=== PATIENT | female | born 1985 | race American Indian/Alaskan Native ===

== ENCOUNTER 2017-04-02 16:36 | Emergency (ER) | payer MEDICAID, OTHER ==
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
[2017-04-02] MEDS ORDERED: NORCO 5/325 PO ONE (19:35)
[2017-04-02 20:10] VITALS: BP 114/74
== END 2017-04-02 19:35 | disposition home or self-care (01) ==
LOC: ED 16:36
DX: S16.1XXA Strain of muscle, fascia and tendon at neck level, initial encounter (principal); S46.912A Strain of unspecified muscle, fascia and tendon at shoulder and upper arm level, left arm, initial encounter; V49.49XA Driver injured in collision with other motor vehicles in traffic accident, initial encounter; Y93.89 Activity, other specified; Y92.89 Other specified places as the place of occurrence of the external cause; Y99.8 Other external cause status
CPT/HCPCS: 72040

== ENCOUNTER 2018-09-09 21:47 | Emergency (ER) | payer MEDICAID ==
[2018-09-09] MEDS ORDERED: LIDOCAINE VISCOUS 2% PO ONE (22:10)
[2018-09-09] MEDS ORDERED: ALUM-MAG HYDROX-SIMETH 200-200-20MG/5ML PO ONE (22:10)
--- NOTE | 2018-09-09 22:14 | Emergency Department Report ---
ED Chest Pain HPI - General Chief Complaint: Chest Pain Stated Complaint: CHEST PAIN Time Seen by Provider: 09/09/18 21:51 Source: patient, EMS Mode of arrival: Ambulatory Limitations: No Limitations - History of Present Illness Initial Comments: Patient is 33 years old female with no significant past medical history. Patient brought to the emergency room via EMS for evaluation of chest pain. Patient stated that pain started after lunch today. Patient described pain as substernal, tightness. Patient stated that she never had any similar symptoms before. Patient denied any shortness of breath, fever, cough or chills. Patient also denied any nausea or vomiting or abdominal pain. MD Complaint: chest pain -: This afternoon Onset: during rest Pain Location: substernal Pain Radiation: none Severity: moderate Severity scale (0 -10): 5 Quality: tightness Consistency: intermittent Improves With: nothing Worsens With: nothing - Related Data Previous Rx's Medication Instructions Recorded Last Taken Type HYDROcodone/ACETAMINOPHEN 1 tab PO TID PRN #15 tablet 04/02/17 Unknown Rx [Hydrocodon-Acetaminophen 5-325] Allergies Allergy/AdvReac Type Severity Reaction Status Date / Time No Known Allergies Allergy Unverified 04/02/17 16:42 Heart Score - HEART Score History: Slightly suspicious EKG: Normal Age: < 45 Risk factors: No known risk factors Troponin: < normal limit HEART Score: 0 - Critical Actions Critical Actions: 0-3 pts:0.9-1.7%risk of adverse cardiac event.Candidate for discharge ED Review of Systems ROS: Stated complaint: CHEST PAIN Other details as noted in HPI Comment: All other systems reviewed and negative Constitutional: denies: chills, fever Respiratory: denies: cough, shortness of breath Cardiovascular: chest pain Gastrointestinal: denies: abdominal pain, nausea, vomiting, diarrhea, constipation, hematemesis, melena, hematochezia Musculoskeletal: denies: back pain Neurological: denies: headache, weakness, numbness, paresthesias, confusion, abnormal gait ED Past Medical Hx - Past Medical History Previous Medical History?: No - Surgical History Past Surgical History?: No - Social History Smoking Status: Unknown if ever smoked Substance Use Type: None - Medications Home Medications: Home Medications Medication Instructions Recorded Confirmed Last Taken Type HYDROcodone/ACETAMINOPHEN 1 tab PO TID PRN #15 tablet 04/02/17 Unknown Rx [Hydrocodon-Acetaminophen 5-325] ED Physical Exam - General Limitations: No Limitations General appearance: alert, in no apparent distress - Head Head exam: Present: atraumatic, normocephalic, normal inspection - Eye Eye exam: Present: normal appearance - ENT ENT exam: Present: normal exam, normal orophraynx, mucous membranes moist - Neck Neck exam: Present: normal inspection, full ROM. Absent: tenderness, meningismus, lymphadenopathy, thyromegaly - Respiratory Respiratory exam: Present: normal lung sounds bilaterally - Cardiovascular Cardiovascular Exam: Present: regular rate, normal rhythm, normal heart sounds - GI/Abdominal GI/Abdominal exam: Present: soft, normal bowel sounds. Absent: distended, tenderness, guarding, rebound, rigid, organomegaly, mass, bruit, pulsatile mass - Extremities Exam Extremities exam: Present: normal inspection, full ROM, normal capillary refill - Back Exam Back exam: Present: normal inspection, full ROM. Absent: CVA tenderness (R), CVA tenderness (L), muscle spasm, paraspinal tenderness, vertebral tenderness - Neurological Exam Neurological exam: Present: alert, oriented X3, CN II-XII intact, normal gait, reflexes normal - Psychiatric Psychiatric exam: Present: normal mood - Skin Skin exam: Present: warm, intact, normal color ED Course Vital Signs 09/09/18 09/09/18 09/09/18 21:58 22:01 22:15 Pulse Rate 65 66 65 Respiratory 16 13 17 Rate Blood Pressure 118/78 113/73 O2 Sat by Pulse 100 98 Oximetry 09/09/18 09/09/18 09/09/18 22:31 22:35 22:45 Pulse Rate 64 73 63 Respiratory 9 L 12 Rate Blood Pressure 113/73 113/73 O2 Sat by Pulse 100 99 Oximetry 09/09/18 09/09/18 09/10/18 23:01 23:15 00:41 Pulse Rate 63 73 63 Respiratory 12 11 L 11 L Rate Blood Pressure 113/73 113/73 107/74 O2 Sat by Pulse 100 100 100 Oximetry 09/10/18 09/10/18 09/10/18 00:45 01:00 01:15 Pulse Rate 70 58 L 61 Respiratory 13 13 14 Rate Blood Pressure 107/74 119/79 119/79 O2 Sat by Pulse 100 98 100 Oximetry ED Medical Decision Making - Lab Data Result diagrams: 09/09/18 22:22 09/09/18 22:23 - EKG Data -: EKG Interpreted by Ia EKG shows normal: sinus rhythm Rate: normal - EKG Data Interpretation: no acute changes - Radiology Data Radiology results: report reviewed CTA chest is negative for PE or any other acute pathology. - Medical Decision Making Patient is 33 years old female with no significant past medical history. Patient brought to the emergency room via EMS for evaluation of chest pain. Patient stated that pain started after lunch today. Patient described pain as substernal, tightness. Patient stated that she never had any similar symptoms before. Patient denied any shortness of breath, fever, cough or chills. Patient also denied any nausea or vomiting or abdominal pain. EKG with no ST elevation or depression. Chest x-ray is negative for acute finding. Labs reviewed and is negative including a negative troponin. D-dimer slightly elevated patient had a CTA chest which is negative for pulmonary emboli sm. I believe the patient's symptoms is most likely related to GERD since patient's symptoms improved with GI cocktail. Patient advised to follow-up with primary care physician in the next 2-3 days and to return to the ER if symptoms have not improved. Critical care attestation.: If time is entered above; I have spent that time in minutes in the direct care of this critically ill patient, excluding procedure time. ED Disposition Clinical Impression: Chest pain, GERD (gastroesophageal reflux disease) Disposition: -01 TO HOME OR SELFCARE Is pt being admited?: No Condition: Stable Instructions: Chest Pain (ED), Gastroesophageal Reflux Disease (ED) Referrals: ASUD BANSAL MD [Primary Care Provider] - 3-5 Days
[2018-09-09 22:46] LABS: Basophils % (Auto) 0.5 % (0.0-1.8); Eosinophils % (Auto) 0.8 % (0.0-4.3); Hematocrit 29.9 % (30.3-42.9); Hemoglobin 10.4 gm/dl (10.1-14.3); Lymphocytes # (Auto) 2.3 K/mm3 (1.2-5.4); Lymphocytes % (Auto) 40.1 % (13.4-35.0); Mean Corpuscular HGB Conc 35 % (30-34); Mean Corpuscular Volume 93 fl (79-97); Monocytes # (Auto) 0.5 K/mm3 (0.0-0.8); Monocytes % (Auto) 8.5 % (0.0-7.3); Platelet Count 315 K/mm3 (140-440); Red Blood Count 3.21 M/mm3 (3.65-5.03); Red Cell Distribution Width 12.4 % (13.2-15.2)
[2018-09-09 23:02] LABS: BUN/Creatinine Ratio 13; Blood Urea Nitrogen 9 mg/dL (7-17); Calcium 9.3 mg/dL (8.4-10.2); Hemolysis Index 0
--- NOTE | 2018-09-10 00:26 | XRay Report ---
CHEST 1 VIEW INDICATION / CLINICAL INFORMATION: Chest Pain. COMPARISON: None available. FINDINGS: SUPPORT DEVICES: None. HEART / MEDIASTINUM: No significant abnormality. LUNGS / PLEURA: No significant pulmonary or pleural abnormality. No pneumothorax. ADDITIONAL FINDINGS: No significant additional findings. IMPRESSION: 1. No acute findings. Signer Name: Albert Stanley MD Signed: 09/10/2018 12:22 AM Workstation Name: [id number]
--- NOTE | 2018-09-10 02:18 | Cat Scan Report ---
. CT angiography of the chest with 2-D reconstructions INDICATION: Chest pain and shortness of breath Thin section axial images were obtained as well as 2-D reformatted MIP images in all 3 planes FINDINGS: There is no hilar or mediastinal adenopathy. No pleural or pericardial effusion. Lung windo ws show no nodules, masses or infiltrates. There is no thoracic aortic aneurysm or dissection present . Routine axial images as well as 2-D reconstructions through the pulmonary arteries show no evidence of emboli. IMPRESSION: Negative chest CTA Automated exposure control was utilized to diminish radiation dose. Signer Name: Albert Stanley MD Signed: 09/10/2018 2:13 AM Workstation Name: [id number]
[2018-09-10 02:35] VITALS: BP 119/79
== END 2018-09-10 03:00 | disposition home or self-care (01) ==
LOC: ED 21:47
DX: R07.89 Other chest pain (principal); K21.9 Gastro-esophageal reflux disease without esophagitis; R79.89 Other specified abnormal findings of blood chemistry; Z79.899 Other long term (current) drug therapy
CPT/HCPCS: 36415; 71045; 71275; 80048; 83690; 84484; 84703; 85025; 85379; 93005; 93010; 99284; Q9967

== ENCOUNTER 2020-11-02 06:34 | Emergency (ER) | payer MEDICAID ==
--- NOTE | 2020-11-02 08:45 | Emergency Department Report ---
ED General Adult HPI - General Stated complaint: DIZZINESS AND HOT FLASHES Time Seen by Provider: 11/02/20 08:35 Source: patient Mode of arrival: Ambulatory Limitations: No Limitations - History of Present Illness Initial comments: 35-year-old female with a past medical history of GERD presents to the ER today with complaints of not feeling well. Patient states that around 3 AM this morning she started "getting hot all over". And she states that when she would try to go back to sleep she felt like she was "passing out". She states that she would have to wake herself up. She reports intermittent dizziness, nausea and she did vomit once last night. She reports "a little" heaviness in her chest. Patient states that she has had a cold since last week Wednesday. She was having fever at the time but this has since resolved. She did have diarrhea but this has also improved. She denies any coughing, wheezing or shortness of breath. She denies any abdominal pain. She denies any UTI symptoms. She denies weakness, numbness, tingling, speech changes or vision changes. She denies any lower extremity swelling or calf pain. She states that she did not take a COVID-19 test since she has been sick with a cold. She also has not gotten any of the COVID-19 vaccines.She states that she does smoke marijuana off and on, she denies any other illicit drugs or alcohol abuse. She admits that she has been under increased stress lately, she has been staying in a hotel for the past month because her apartment is currently under renovation and she has also not see her daughter in 1 week. She denies any SI/HI or hallucinations. MD Complaint: Not feeling well - dizzy, feeling like she is about to pass out, nausea -: Gradual, This morning - Related Data Previous Rx's Medication Instructions Recorded Last Taken Type HYDROcodone/ACETAMINOPHEN 1 tab PO TID PRN #15 tablet 04/02/17 Unknown Rx [Hydrocodon-Acetaminophen 5-325] Docusate Sodium [Colace] 100 mg PO BID #30 capsule 11/02/20 Unknown Rx Famotidine [Pepcid] 20 mg PO BID #60 tablet 11/02/20 Unknown Rx Pantoprazole [Protonix] 40 mg PO QDAY #30 tablet 11/02/20 Unknown Rx Allergies Allergy/AdvReac Type Severity Reaction Status Date / Time No Known Allergies Allergy Unverified 04/02/17 16:42 ED Review of Systems ROS: Stated complaint: DIZZINESS AND HOT FLASHES Other details as noted in HPI ED Past Medical Hx - Social History Smoking Status: Unknown if ever smoked Substance Use Type: None - Medications Home Medications: Home Medications Medication Instructions Recorded Confirmed Last Taken Type HYDROcodone/ACETAMINOPHEN 1 tab PO TID PRN #15 tablet 04/02/17 Unknown Rx [Hydrocodon-Acetaminophen 5-325] Docusate Sodium [Colace] 100 mg PO BID #30 capsule 11/02/20 Unknown Rx Famotidine [Pepcid] 20 mg PO BID #60 tablet 11/02/20 Unknown Rx Pantoprazole [Protonix] 40 mg PO QDAY #30 tablet 11/02/20 Unknown Rx ED Physical Exam - General General appearance: alert, anxious, other (intermittently crying in triage ) - Head Head exam: Present: atraumatic, normocephalic, normal inspection - Eye Eye exam: Present: normal appearance, PERRL, EOMI Pupils: Present: normal accommodation - ENT ENT exam: Present: normal exam, mucous membranes moist, TM's normal bilaterally - Neck Neck exam: Present: normal inspection, full ROM. Absent: meningismus ED Course Vital Signs 11/02/20 11/02/20 11/02/20 08:33 12:07 13:10 Temperature 97.8 F 97.8 F 98.2 F Pulse Rate 105 H 84 76 Pulse Rate [ Sitting] Pulse Rate [ Standing] Respiratory 20 12 18 Rate Blood Pressure 124/77 Blood Pressure 111/80 66/28 [Right] Blood Pressure [Sitting] Blood Pressure [Standing] O2 Sat by Pulse 100 100 99 Oximetry 11/02/20 11/02/20 11/02/20 13:18 13:25 13:30 Temperature 97.6 F Pulse Rate 78 Pulse Rate [ 74 Sitting] Pulse Rate [ 76 Standing] Respiratory 12 Rate Blood Pressure 116/76 Blood Pressure 116/76 [Right] Blood Pressure 72/30 [Sitting] Blood Pressure 66/28 [Standing] O2 Sat by Pulse 100 Oximetry 11/02/20 11/02/20 13:31 13:45 Temperature Pulse Rate 80 91 H Pulse Rate [ Sitting] Pulse Rate [ Standing] Respiratory 10 L 15 Rate Blood Pressure 116/76 116/81 Blood Pressure [Right] Blood Pressure [Sitting] Blood Pressure [Standing] O2 Sat by Pulse 100 100 Oximetry ED Medical Decision Making - Lab Data Result diagrams: 11/02/20 09:19 11/02/20 09:19 - EKG Data EKG shows normal: sinus rhythm (67) Rate: normal - EKG Data Interpretation: normal EKG - Radiology Data Radiology results: report reviewed Patient: JAVI TANNER MR#: [id number] : 1985 Acct:[id number] Age/Sex: 35 / F ADM Date: 11/02/20 Loc: ED Attending Dr: Ordering Physician: JODIE SCHWARZ Date of Service: 11/02/20 Procedure(s): XR chest routine 2V Accession Number(s): [id number] cc: JODIE SCHWARZ Fluoro Time In Minutes: CHEST 2 VIEWS INDICATION / CLINICAL INFORMATION: chest heaviness. COMPARISON: None available. FINDINGS: SUPPORT DEVICES: None. HEART / MEDIASTINUM: No significant abnormality. LUNGS / PLEURA: No significant pulmonary or pleural abnormality. No pneumothorax. ADDITIONAL FINDINGS: No significant additional findings. IMPRESSION: 1. No acute findings. Signer Name: Pedro Christianson MD Signed: 11/02/2020 10:35 AM Workstation Name: [id number] Transcribed By: SB Dictated By: PEDRO CHRISTIANSON MD Electronically Authenticated By: PEDRO CHRISTIANSON MD Signed Date/Time: 11/02/20 1035 DD/ 1035 TD/TT: - Medical Decision Making All labs reviewed--CBC and CMP unremarkable. Troponin is normal. EKG showed normal sinus rhythm without any signs of STEMI, or any other acute ischemic changes or significant arrhythmia. Chest x-ray is normal. Urinalysis negative for UTI. hCG is negative. Repeat vital signs shows improvement of her mild tachycardia that she had upon triage and remainder her vital signs are stable. Patient did get 1 L of IV fluids. Discussed all labs and imaging results including EKG results with patient. Upon reevaluation of patient, she still feels like she is having chest palpitations, and feels like she has something in her chest. And when she closes her eyes where she feels like she is passing out. She did admit that she feels like an impending sense of doom. Patient does appear anxious. Patient has no risk factors for PE or DVT. Her PERC score is 0. Her heart score is also 1. Patient also neurologically intact with a normal gait. I do not suspect any i ntracranial abnormality at this time. She has no meningeal signs on exam, and she is not in any respiratory distress. She has a soft nontender abdomen. Discussed case with Dr. Beyer, who also saw and evaluated patient, see his note for detail. He agreed that his indication for any additional testing or admission at this time. Upon discharge, nurse nassar repeated patient vitals for third time and reported to me that patient blood pressure is now 66 systolic. She states that she repeated 2 more times and it was still in the 60s/70s systolic. I asked that she use the appropriate cuff and she stated that she did. She was then taken to room 34 and her blood pressure was repeated whilst in the room, and it is now 116/76. Patient currently eating a from a food tray. She is not in any acute distress. She has not reported any additional or worsening symptoms since Me and Dr Longo last saw her. Suspect that the low blood pressure readings were in error, and patient is still stable for discharge. Critical care attestation.: If time is entered above; I have spent that time in minutes in the direct care of this critically ill patient, excluding procedure time. ED Disposition Clinical Impression: Anxiety, Viral illness, Nonspecific chest pain, Weakness Disposition: 01 HOME / SELF CARE / HOMELESS Is pt being admited?: No Condition: Stable Instructions: Nonspecific Chest Pain, Adult, Viral Illness, Adult, Managing Anx iety, Adult, Weakness Additional Instructions: you can take colace to help when you feel constipated. Also take the Pepcid and the Protonix as prescribed to help with indigestion. I do recommend get an outpatient COVID-19 test at a local urgent care or local pharmacy as this also could be contributing to her symptoms. I suspect that your symptoms are also related to anxiety and I do recommend that you follow-up with the PCP listed on discharge instructions for further evaluation. Return to the ER if your symptoms changes or worsens in any way. Prescriptions: Docusate Sodium [Colace] 100 mg PO BID #30 capsule Famotidine [Pepcid] 20 mg PO BID #60 tablet Pantoprazole [Protonix] 40 mg PO QDAY #30 tablet Referrals: [facility] [Provider Group] - 3-5 Days SAUD BANSAL MD [Staff Physician] - 3-5 Days Forms: Work/School Release Form(ED) Time of Disposition: 12:37 Print Language: PERSIAN HEART Score - HEART Score History: Slightly suspicious EKG: Normal Age: < 45 Risk factors: No known risk factors Troponin: Troponin T < 0.010 ng/mL (0.00-0.029) 11/02/20 09:19 Troponin: < normal limit HEART Score: 0 - Critical Actions Critical Actions: 0-3 pts:0.9-1.7%risk of adverse cardiac event.Candidate for discharge
[2020-11-02] MEDS ORDERED: SODIUM CHLORIDE 0.9% 1000 ML 1,000 ML IV ONE (08:55)
[2020-11-02 09:55] LABS: Basophils % (Auto) 0.4 % (0.0-1.8); Eosinophils % (Auto) 0.1 % (0.0-4.3); Hematocrit 34.7 % (30.3-42.9); Hemoglobin 12.2 gm/dl (10.1-14.3); Lymphocytes # (Auto) 1.1 K/mm3 (1.2-5.4); Mean Corpuscular HGB Conc 35 % (30-34); Mean Corpuscular Volume 92 fl (79-97); Monocytes # (Auto) 0.5 K/mm3 (0.0-0.8); Monocytes % (Auto) 7.1 % (0.0-7.3); Platelet Count 332 K/mm3 (140-440); Red Blood Count 3.78 M/mm3 (3.65-5.03); Red Cell Distribution Width 12.7 % (13.2-15.2)
[2020-11-02 10:09] LABS: Alanine Aminotransferase 15 units/L (7-56); Albumin 4.2 g/dL (3.9-5); Blood Urea Nitrogen 5 mg/dL (7-17); Calcium 9.6 mg/dL (8.4-10.2); Hemolysis Index 3
[2020-11-02 10:11] LABS: BUN/Creatinine Ratio 8
--- NOTE | 2020-11-02 10:40 | XRay Report ---
CHEST 2 VIEWS INDICATION / CLINICAL INFORMATION: chest heaviness. COMPARISON: None available. FINDINGS: SUPPORT DEVICES: None. HEART / MEDIASTINUM: No significant abnormality. LUNGS / PLEURA: No significant pulmonary or pleural abnormality. No pneumothorax. ADDITIONAL FINDINGS: No significant additional findings. IMPRESSION: 1. No acute findings. Signer Name: Pedro Christianson MD Signed: 11/02/2020 10:35 AM Workstation Name: [id number]
[2020-11-02 12:08] LABS: Bilirubin,Urine NEG (Negative); Blood,Urine NEG (Negative); Color,Urine Straw (Yellow); Protein,Urine <15 mg/dL mg/dL (Negative); Urobilinogen,Urine < 2.0 mg/dL (<2.0)
[2020-11-02 12:09] LABS: WBC,Urine < 1.0 /HPF (0.0-6.0)
[2020-11-02] MEDS ORDERED: dexAMETHasone 20 MG/5 ML VIAL IV ONE (12:26)
--- NOTE | 2020-11-02 12:28 | Event Note ---
Date of service: 11/02/20 Face to Face: For this encounter I have reviewed the PA/NETWORKING ENGINEER documentation, treatment plan, medical decision making, and I had face to face time with this patient. Patient presented secondary to chest pain and trouble breathing. She described this as tightness. There was no trauma. Symptoms have been present for several days. There is no pain or swelling in the legs. On exam, patient had a heart that showed a regular rate and rhythm on auscultation. There is no murmur. She did have a pleural friction rub on the right compared to the left. There were no crackles. There is no diminished breath sounds. Labs have been reviewed. Patient was given a dose of Decadron on discharge. I do believe this is inflammatory. Her symptoms do not seem to be cardiac in nature. She has no significant ACS risk factor. She has no pain or swelling in the legs. She has no recent travel. She has a low Wells score for PE and is PERC negative.
--- NOTE | 2020-11-02 12:28 | Electrocardiograph Report ---
[facility] Test Date: 2020-11-02 Test Time: 10:02:14 Pat Name: JAVI TANNER Department: Room: Gender: F Senior Java Engineer: MARIELLE : 1985 Requested By: JODIE SCHWARZ Order Number: [id number] Reading MD: Trevor Castillo Measurements Intervals [place] Rate: 67 P: 18 OR: 145 QRS: 74 QRSD: 78 T: 45 QT: 416 QTc: 440 Interpretive Statements Sinus rhythm No previous ECG available for comparison Electronically Signed On 11-02-2020 12:28:24 EDT by Trevor Castillo
[2020-11-02] MEDS ORDERED: FAMOTIDINE 20 MG TAB PO ONE (13:27)
[2020-11-02 13:48] VITALS: BP 116/81
== END 2020-11-02 14:22 | disposition home or self-care (01) ==
LOC: ED 06:34
DX: B34.9 Viral infection, unspecified (principal); F41.8 Other specified anxiety disorders; R07.89 Other chest pain; R53.1 Weakness
CPT/HCPCS: 36415; 71046; 80053; 81001; 83735; 84484; 84703; 85025; 93005; 96361; 96374; 99284; J1100; J7030

== ENCOUNTER 2020-11-03 14:14 | Emergency (ER) | payer MEDICAID ==
[2020-11-03] MEDS ORDERED: SODIUM CHLORIDE 0.9% 1000 ML 1,000 ML IV ONE (15:14)
[2020-11-03] MEDS ORDERED: ONDANSETRON 4 MG/2 ML INJ IV ONE (15:14)
--- NOTE | 2020-11-03 15:25 | Emergency Department Report ---
ED N/V/D HPI - General Chief complaint: Weakness Stated complaint: NAUSEA/VOMTING Time Seen by Provider: 11/03/20 15:01 Source: patient, EMS Mode of arrival: Ambulatory Limitations: No Limitations - History of Present Illness Initial comments: This is a 35-year-old female nontoxic, well nourished in appearance, no acute signs of distress presents to the ED with c/o of generalized weakness and nausea and vomiting 1 day. Patient stated that she received steroids injection yesterday in ER and this morning started to have vomiting and generalized weak ness. Otherwise denies any other symptoms or complaints. Patient stated her chest pain and shortness of breath from yesterday that she was seen for has resolved. Denies any chest tightness. Patient describes vomiting as food content. Patient denies any abdominal pain, chest pain, short of breath, fever, chills, headache, stiff neck, numbness or tingling. Patient denies any diarrhea or constipation. Denies any blood in stool. Patient denies any recent travels. Patient denies any drug allergies. Past medical history is GERD. MD complaint: nausea, vomiting -: days(s) Associated Abdominal Pain: No Radiation: none Pain Scale: 0 Consistency: intermittent Improves with: none Worsens with: none Associated Symptoms: nausea/vomiting. denies: myalgias, chest pain, cough, diaphoresis, fever/chills, headaches, loss of appetite, malaise, rash, dysuria, shortness of breath, syncope, weakness - Related Data Previous Rx's Medication Instructions Recorded Last Taken Type HYDROcodone/ACETAMINOPHEN 1 tab PO TID PRN #15 tablet 04/02/17 Unknown Rx [Hydrocodon-Acetaminophen 5-325] Docusate Sodium [Colace] 100 mg PO BID #30 capsule 11/02/20 Unknown Rx Famotidine [Pepcid] 20 mg PO BID #60 tablet 11/02/20 Unknown Rx Pantoprazole [Protonix] 40 mg PO QDAY #30 tablet 11/02/20 Unknown Rx Ondansetron [Zofran Odt] 4 mg PO Q12H PRN #12 tab.rapdis 11/03/20 Unknown Rx Allergies Allergy/AdvReac Type Severity Reaction Status Date / Time No Known Allergies Allergy Unverified 04/02/17 16:42 ED Review of Systems ROS: Stated complaint: NAUSEA/VOMTING Other details as noted in HPI Comment: All other systems reviewed and negative Constitutional: denies: chills, fever Eyes: denies: eye pain, eye discharge, vision change ENT: denies: ear pain, throat pain Respiratory: denies: cough, shortness of breath, wheezing Cardiovascular: denies: chest pain, palpitations Endocrine: no symptoms reported Gastrointestinal: nausea, vomiting. denies: abdominal pain, diarrhea, constipation, hematemesis, melena, hematochezia Genitourinary: denies: urgency, dysuria, discharge Musculoskeletal: denies: back pain, joint swelling, arthralgia Skin: denies: rash, lesions Neurological: denies: headache, weakness, paresthesias Psychiatric: denies: anxiety, depression Hematological/Lymphatic: denies: easy bleeding, easy bruising ED Past Medical Hx - Past Medical History Previous Medical History?: Yes Hx GERD: Yes - Surgical History Past Surgical History?: No - Social History Smoking Status: Never Smoker Substance Use Type: Alcohol - Medications Home Medications: Home Medications Medication Instructions Recorded Confirmed Last Taken Type HYDROcodone/ACETAMINOPHEN 1 tab PO TID PRN #15 tablet 04/02/17 Unknown Rx [Hydrocodon-Acetaminophen 5-325] Docusate Sodium [Colace] 100 mg PO BID #30 capsule 11/02/20 Unknown Rx Famotidine [Pepcid] 20 mg PO BID #60 tablet 11/02/20 Unknown Rx Pantoprazole [Protonix] 40 mg PO QDAY #30 tablet 11/02/20 Unknown Rx Ondansetron [Zofran Odt] 4 mg PO Q12H PRN #12 tab.rapdis 11/03/20 Unknown Rx ED Physical Exam - General Limitations: No Limitations General appearance: alert, in no apparent distress - Head Head exam: Present: atraumatic, normocephalic - Eye Eye exam: Present: normal appearance - ENT ENT exam: Present: normal exam, normal orophraynx - Neck Neck exam: Present: normal inspection, full ROM. Absent: tenderness, meningismus, lymphadenopathy - Respiratory Respiratory exam: Present: normal lung sounds bilaterally. Absent: respiratory distress, wheezes, rales, rhonchi, stridor, chest wall tenderness, accessory muscle use, decreased breath sounds, prolonged expiratory - Cardiovascular Cardiovascular Exam: Present: regular rate, normal rhythm, normal heart sounds. Absent: bradycardia, tachycardia, irregular rhythm, systolic murmur, diastolic murmur, rubs, gallop - GI/Abdominal GI/Abdominal exam: Present: soft, normal bowel sounds. Absent: distended, tenderness, guarding, rebound, rigid, diminished bowel sounds - Extremities Exam Extremities exam: Present: normal inspection, full ROM, normal capillary refill. Absent: tenderness - Back Exam Back exam: Present: normal inspection, full ROM. Absent: tenderness, CVA tenderness (R), CVA tenderness (L), muscle spasm, paraspinal tenderness, vertebral tenderness, rash noted - Neurological Exam Neurological exam: Present: alert, oriented X3, normal gait - Psychiatric Psychiatric exam: Present: normal affect, normal mood - Skin Skin exam: Present: warm, dry, intact, normal color. Absent: rash ED Course Vital Signs 11/03/20 15:03 Temperature 98.0 F Pulse Rate 70 Respiratory 20 Rate Blood Pressure 105/67 O2 Sat by Pulse 100 Oximetry - Reevaluation(s) Reevaluation #1: 11/03/20 15:25 Patient is speaking in full sentences with no signs of distress noted. ED Medical Decision Making - Lab Data Result diagrams: 11/03/20 15:30 11/03/20 15:30 Lab Results 11/03/20 11/03/20 11/03/20 Range/Units 15:30 15:30 Unknown WBC 6.2 (4.5-11.0) K/mm3 RBC 3.92 (3.65-5.03) M/mm3 Hgb 12.7 (10.1-14.3) gm/dl Hct 36.4 (30.3-42.9) % MCV 93 (79-97) fl MCH 32 (28-32) pg MCHC 35 H (30-34) % RDW 12.6 L (13.2-15.2) % Plt Count 334 (140-440) K/mm3 Lymph % (Auto) 26.0 (13.4-35.0) % Burke % (Auto) 12.4 H (0.0-7.3) % Eos % (Auto) 0.1 (0.0-4.3) % Baso % (Auto) 0.3 (0.0-1.8) % Lymph # (Auto) 1.6 (1.2-5.4) K/mm3 Burke # (Auto) 0.8 (0.0-0.8) K/mm3 Eos # (Auto) 0.0 (0.0-0.4) K/mm3 Baso # (Auto) 0.0 (0.0-0.1) K/mm3 Seg Neutrophils % 61.2 (40.0-70.0) % Seg Neutrophils # 3.8 (1.8-7.7) K/mm3 Sodium 136 L (137-145) mmol/L Potassium 3.6 (3.6-5.0) mmol/L Chloride 97.3 L (98-107) mmol/L Carbon Dioxide 24 (22-30) mmol/L Anion Gap 18 mmol/L BUN 6 L (7-17) mg/dL Creatinine 0.7 (0.6-1.2) mg/dL Estimated GFR > 60 ml/min BUN/Creatinine Ratio 9 % Glucose 95 (65-100) mg/dL Calcium 9.8 (8.4-10.2) mg/dL Total Bilirubin 0.40 (0.1-1.2) mg/dL AST 26 (5-40) units/L ALT 19 (7-56) units/L Alkaline Phosphatase 63 (35-129) units/L Total Protein 8.5 H (6.3-8.2) g/dL Albumin 4.5 (3.9-5) g/dL Albumin/Globulin Ratio 1.1 % Lipase 38 (13-60) units/L Urine Color Colorless (Yellow) Urine Turbidity Clear (Clear) Urine pH 7.0 (5.0-7.0) Ur Specific [place] 1.001 L (1.003-1.030) Urine Protein <15 mg/dl (Negative) mg/dL Urine Glucose (UA) Neg (Negative) mg/dL Urine Ketones Neg (Negative) mg/dL Urine Blood Neg (Negative) Urine Nitrite Neg (Negative) Urine Bilirubin Neg (Negative) Urine Urobilinogen < 2.0 (<2.0) mg/dL Ur Leukocyte Esterase Neg (Negative) Urine WBC (Auto) < 1.0 (0.0-6.0) /HPF Urine RBC (Auto) 1.0 (0.0-6.0) /HPF Urine Mucus Few /HPF - Medical Decision Making This is a 35-year-old female that presents with nausea and vomiting. Patient is stable and was examined by me. There is no abdominal tenderness. Negative signs of symptoms of appendicitis, cholecystitis or acute abdomen. Labs obtained. UA obtained. Vital signs are stable prior to discharge. Patient received Zofran and 1L Normal saline in the ED which patient stated symptoms has resovled and subsided. A by mouth challenge has been obtained and patient tolerated well with no nausea vomiting. Patient was also instructed to take a Covid test outpatient. Patient was also instructed to Follow-up with a primary care doctor in 3-5 days or if symptoms worsen and continue return to emergency room as soon as possible. At time of discharge, the patient does not seem toxic or ill in appearance. No acute signs of distress noted. Patient agrees to discharge treatment plan of care. No further questions noted by the patient. Critical care attestation.: If time is entered above; I have spent that time in minutes in the direct care of this critically ill patient, excluding procedure time. ED Disposition Clinical Impression: Generalized weakness Nausea & vomiting Qualifiers: Vomiting type: unspecified Vomiting Intractability: non-intractable Qualified Code(s): R11.2 - Nausea with vomiting, unspecified Disposition: 01 HOME / SELF CARE / HOMELESS Is pt being admited?: No Does the pt Need Aspirin: No Condition: Stable Instructions: Nausea and Vomiting, Adult Additional Instructions: Follow-up with a primary care doctor in 3-5 days or if symptoms worsen and continue return to emergency room as soon as possible. Prescriptions: Ondansetron [Zofran Odt] 4 mg PO Q12H PRN #12 tab.rapdis PRN Reason: Nausea Referrals: SUDHEER RAMEY MD [Referring] - 3-5 Days SAUD BANSAL MD [Staff Physician] - 3-5 Days [facility] [Provider Group] - 3-5 Days Forms: Work/School Release Form(ED) Time of Disposition: 17:28
[2020-11-03 16:02] LABS: Basophils % (Auto) 0.3 % (0.0-1.8); Eosinophils % (Auto) 0.1 % (0.0-4.3); Hematocrit 36.4 % (30.3-42.9); Hemoglobin 12.7 gm/dl (10.1-14.3); Lymphocytes # (Auto) 1.6 K/mm3 (1.2-5.4); Mean Corpuscular HGB Conc 35 % (30-34); Mean Corpuscular Volume 93 fl (79-97); Monocytes # (Auto) 0.8 K/mm3 (0.0-0.8); Monocytes % (Auto) 12.4 % (0.0-7.3); Platelet Count 334 K/mm3 (140-440); Red Blood Count 3.92 M/mm3 (3.65-5.03); Red Cell Distribution Width 12.6 % (13.2-15.2)
[2020-11-03 16:29] LABS: Alanine Aminotransferase 19 units/L (7-56); Albumin 4.5 g/dL (3.9-5); Blood Urea Nitrogen 6 mg/dL (7-17); Calcium 9.8 mg/dL (8.4-10.2); Hemolysis Index 14
[2020-11-03 16:36] LABS: BUN/Creatinine Ratio 9
[2020-11-03 17:20] LABS: Bilirubin,Urine NEG (Negative); Blood,Urine NEG (Negative); Color,Urine Colorless (Yellow); Mucus,Urine FEW /HPF; Protein,Urine <15 mg/dL mg/dL (Negative); Urobilinogen,Urine < 2.0 mg/dL (<2.0); WBC,Urine < 1.0 /HPF (0.0-6.0)
[2020-11-03 17:38] VITALS: BP 122/50
== END 2020-11-03 17:53 | disposition home or self-care (01) ==
LOC: ED 14:14
DX: R53.1 Weakness (principal); R11.2 Nausea with vomiting, unspecified; K21.9 Gastro-esophageal reflux disease without esophagitis
CPT/HCPCS: 36415; 80053; 81001; 83690; 85025; 96361; 96374; 99284; J2405; J7030